=== PATIENT | female | born 1985 | race Caucasian/White ===

== ENCOUNTER 2017-07-28 17:54 | Inpatient (IN) ==
[2017-07-28] MEDS ORDERED: LACTATED RINGERS 1,000 ML IV ONE (18:31)
[2017-07-28] MEDS ORDERED: ONDANSETRON 4 MG/2 ML VIAL IV ONE ×2 (18:31→20:03)
--- NOTE | 2017-07-28 18:33 | Emergency Department Note ---
Abdominal Pain HPI - General Chief Complaint: Abdominal Pain Stated Complaint: left lower abdominal pain Time Seen by Provider: 07/28/17 18:23 Source: patient Mode of arrival: ambulatory Limitations: no limitations - History of Present Illness HPI Narrative: This patient has had abdominal pain for last several days and was seen here Friday and had a CAT scan consistent with either diverticulitis or colitis in the sigmoid colon. She was treated with IV antibiotics fluids on Friday and discharged on oral Flagyl and Cipro and is not getting any better. Pain is the same and she is unable to eat due to nausea. She does feel thirsty and dehydrated. - Related Data Previous Rx's Medication Instructions Recorded Ciprofloxacin [Cipro] 500 mg PO BID #20 tab 07/25/17 HYDROcodone/APAP 10/325MG [[place] 1 tab PO Q4H PRN #20 tab 07/25/17 10/325Mg] metroNIDAZOLE [Metronidazole] 500 mg PO Q8 #30 tab 07/25/17 Allergies Allergy/AdvReac Type Severity Reaction Status Date / Time No Known Drug Allergies Allergy Verified 07/25/17 15:01 Review of Systems All systems ED: reviewed and negative except as stated. Abdominal Pain PMH - Past Medical History [facility] Narrative: Medical History Anal fissure (Acute) Medical history: Reports: other (hernia) Reports: diverticulitis Psychiatric history: Reports: no psych history [employer] history: Reports: other (just had her period) Family history: Reports: no significant family history - Social History Smoking status: Never smoker Physical Exam Limitations: no limitations General appearance: alert Head: atraumatic Eye: Present: normal appearance ENT: normal exam Neck: Present: normal inspection Chest: Present: normal inspection Respiratory: Present: normal lung sounds bilaterally Cardiovascular: Present: regular rate, normal rhythm, normal heart sounds Abdominal: Present: soft, tenderness. Absent: distention, guarding, rebound, rigidity Abdominal tenderness: Present: LLQ Neurological: Present: alert Psychiatric: Present: normal affect, normal mood Skin: Present: warm, dry, intact Course Vital Signs Temperature 98.7 F 07/28/17 17:55 Pulse Rate 131 H 07/28/17 17:55 Respiratory Rate 22 07/28/17 17:55 Blood Pressure 151/97 07/28/17 17:55 Pulse Oximetry (%) 100 07/28/17 17:55 Temperature 98.7 F 07/28/17 17:55 Pulse Rate 131 H 07/28/17 17:55 Respiratory Rate 22 07/28/17 17:55 Blood Pressure 151/97 07/28/17 17:55 Pulse Oximetry (%) 100 07/28/17 17:55 Abdominal Pain - MDM Narrative Medical decision making narrative: Patient is hydrated lab work still shows a slightly elevated white count. I discussed the case with Dr. Nelson and the patient will be admitted to the hospital for inpatient treatment. - Lab Data Lab results reviewed: Yes I reviewed the patient's lab results. Result diagrams: 07/28/17 18:41 07/28/17 18:41 Lab Results 07/28/17 07/28/17 07/28/17 Range/Units 18:41 18:41 19:09 WBC 12.3 H (4.5-11.0) K/mcL RBC 5.08 (4.00-5.20) M/mcL Hgb 14.3 (12.0-15.0) g/dL Hct 43.1 (36.0-48.0) % MCV 84.8 (80.0-100.0) fL MCH 28.1 (26.0-34.0) pg MCHC 33.2 (31.0-36.0) g/dL RDW 14.8 H (11.5-14.5) % Plt Count 436 (140-440) K/mcL MPV 8.0 (7.4-10.4) fL Gran % 84.6 H (38.0-78.0) % Lymph % (Auto) 9.4 L (15.5-49.0) % Castro % (Auto) 3.0 (1.0-12.0) % Eos % (Auto) 2.7 (0.0-7.0) % Baso % (Auto) 0.3 (0.0-2.0) % Gran # 10.4 H (1.8-8.0) K/mcL Lymph # (Auto) 1.2 L (1.5-4.8) K/mcL Castro # (Auto) 0.4 (0.1-0.9) K/mcL Eos # (Auto) 0.3 (0.0-0.7) K/mcL Baso # (Auto) 0 (0.0-0.3) K/mcL Sodium 135 (133-145) mmol/L Potassium 4.4 (3.3-5.1) mmol/L Chloride 96 (96-108) mmol/L Carbon Dioxide 19 L (22-30) mmol/L Anion Gap 20.0 H (8-16) BUN 7 (6-20) mg/dl Creatinine 0.7 (0.6-1.1) mg/dl GFR Calculation 115 Glucose 96 (70-105) mg/dL Calcium 10.1 (8.6-10.4) mg/dl Total Bilirubin 0.2 (0.0-1.0) mg/dL AST 16 (0-37) U/l ALT 15 (0-40) U/l Alkaline Phosphatase 66 (39-117) U/L Total Protein 8.5 H (5.9-8.4) gm/dL Albumin 4.6 (3.2-5.2) gm/dL Globulin 3.9 H (2.2-3.7) gm/dL Albumin/Globulin Ratio 1.2 (1.0-2.3) Urine Color Straw Urine Appearance Clear Urine pH 6.0 (5.0-9.0) Ur Specific Conde 1.005 (1.000-1.035) Urine Protein Neg (NEG) mg/dL Urine Glucose (UA) Negative (NEG) mg/dL Urine Ketones 80 A (NEG) mg/dL Urine Occult Blood Neg (<0.03) mg/dL Urine Nitrate Neg (NEG) Urine Bilirubin Neg (NEG) mg/dL Urine Urobilinogen Neg (NEG) mg/dL Ur Leukocyte Esterase Neg (NEG) /uL Urine RBC < 1 (0-1) /hpf Urine WBC 0 (0-4) /hpf Ur Squamous Epith Cells 2 (0-4) /hpf Urine Bacteria 0 (0) /hpf Urine Mucus Few (0) /hpf Ur Culture Indicated? No Disposition Pt seen by BUSINESS INFORMATION CONSULTANT/PA only: No Clinical Impression: Diverticulitis Disposition: Xfer As Inpt ([facility]) Condition: Good Referrals: Mala Stone ARNP [Primary Care Provider] - Time of Disposition: 20:05
[2017-07-28] MEDS: HYDROmorphone 2 MG/ML VIAL IV PRN ×3 (18:54→20:04)
[2017-07-28 19:35] LABS: Appearance,Urine CLEAR; Bacteria,Urine 0 /hpf (0); Bilirubin,Urine NEG (NEG); Color,Urine STRAW; Glucose,Urine (UA) NEGATIVE (NEG); Leukocyte Esterase,Urine NEG /uL (NEG); Mucus,Urine FEW /hpf (0); Protein,Urine NEG (NEG); Specific Gravity,Urine 1.005 (1.000-1.035); Urine Blood NEG mg/dL (<0.03); Urine RBC < 1 /hpf (0-1); Urine Squamous Epithelial Cell 2 /hpf (0-4); Urine WBC 0 /hpf (0-4); Urobilinogen,Urine NEG (NEG)
[2017-07-28 19:36] LABS: Basophils # (Auto) 0 K/mcL (0.0-0.3); Basophils % (Auto) 0.3 % (0.0-2.0); Eosinophils # (Auto) 0.3 K/mcL (0.0-0.7); Eosinophils % (Auto) 2.7 % (0.0-7.0); Granulocytes % (Auto) 84.6 % (38.0-78.0); Lymphocytes # (Auto) 1.2 K/mcL (1.5-4.8); Lymphocytes % (Auto) 9.4 % (15.5-49.0); Mean Cell Volume 84.8 fL (80.0-100.0); Mean Corpuscular HGB Conc 33.2 g/dL (31.0-36.0); Mean Corpuscular Hemoglobin 28.1 pg (26.0-34.0); Monocytes # (Auto) 0.4 K/mcL (0.1-0.9); Platelet Count 436 K/mcL (140-440); RBC 5.08 M/mcL (4.00-5.20); Red Cell Distribution Width 14.8 % (11.5-14.5)
[2017-07-28 19:47] LABS: ALT/SGPT 15 U/l (0-40); Albumin 4.6 gm/dL (3.2-5.2); Albumin/Globulin Ratio 1.2 (1.0-2.3); Alkaline Phosphatase 66 U/L (39-117); Blood Urea Nitrogen 7 mg/dl (6-20)
[2017-07-28] MEDS ORDERED: metroNIDAZOLE 500 MG/100 ML BAG IV ONE (20:04)
[2017-07-28] MEDS ORDERED: LEVOFLOXACIN 750 MG/150 ML BAG IV ONE (20:04)
[2017-07-28] MEDS ORDERED: ONDANSETRON 4 MG/2 ML VIAL ONE (20:11)
[2017-07-28] MEDS ORDERED: ACETAMINOPHEN 325 MG TABLET PO PRN (21:19)
[2017-07-28] MEDS ORDERED: HYDROmorphone 2 MG/ML VIAL IV PRN (21:19)
[2017-07-28] MEDS: 0.9 % SODIUM CHLORIDE 1,000 ML IV SCH (22:13)
[2017-07-28] MEDS: 0.9 % SODIUM CHLORIDE 10 ML SYRINGE IV SCH (22:17)
[2017-07-28] MEDS: oxyCODONE HCL 5 MG TABLET PO PRN (22:21)
[2017-07-29] MEDS: ONDANSETRON 4 MG/2 ML VIAL IV PRN ×2 (01:25→10:49)
[2017-07-29] MEDS: oxyCODONE HCL 5 MG TABLET PO PRN ×2 (04:13→21:09)
[2017-07-29] MEDS: metroNIDAZOLE 500 MG/100 ML BAG IV SCH ×4 (05:31→23:10)
[2017-07-29] MEDS: 0.9 % SODIUM CHLORIDE 1,000 ML IV SCH ×2 (05:31→17:11)
[2017-07-29] MEDS: 0.9 % SODIUM CHLORIDE 10 ML SYRINGE IV SCH ×3 (05:40→21:04)
[2017-07-29 06:30] LABS: Mean Corpuscular HGB Conc 32.6 g/dL (31.0-36.0); Platelet Count 325 K/mcL (140-440); RBC 4.31 M/mcL (4.00-5.20); Red Cell Distribution Width 14.9 % (11.5-14.5)
[2017-07-29 06:52] LABS: ALT/SGPT 12 U/l (0-40); Albumin 3.9 gm/dL (3.2-5.2); Albumin/Globulin Ratio 1.3 (1.0-2.3); Alkaline Phosphatase 54 U/L (39-117); Bilirubin,Direct < 0.2 mg/dL (0.0-0.3); Blood Urea Nitrogen 5 mg/dl (6-20); Gamma Glutamyl Transpeptidase 12 U/L (5-36); Uric Acid 8.4 mg/dL (2.5-8.0)
[2017-07-29 07:30] LABS: Lymphocytes % 7 % (15-49); Monocytes % (Manual) 2 % (1-12); Platelet Estimate NORMAL (NORMAL); RBC Morphology NORMAL (NORMAL); Segmented Neutrophils % 91 % (38-78)
[2017-07-29] MEDS: LEVOFLOXACIN 500 MG/100 ML BAG IV SCH (09:17)
--- NOTE | 2017-07-29 12:39 | General Surg History&Physical ---
History of Present Illness Patient information: Note initiated : 07/29/17 at 12:37 pm Service Date, if different from initiated Date: [] Patient: Alan Cooper a 31 y/o F admitted on 07/28/17 for Left Lower Abdominal Pain/Diverticulitis. Chief Complaint: [] HPI: Ms. Cooper is a 31 year old F admitted with left lower quadrant. The patient had onset of left lower quadrant abdominal pain on of last week. She had pain all night and into the next day. The pain continued while she was at work and she finally was seen in the emergency room after she noticed that she was having some bleeding. She had a CT done which suggested diverticulitis involving the proximal sigmoid colon with localized pericolonic inflammation and thickening of the colonic wall. She was treated with Cipro and Flagyl and discharged home but she continued to be symptomatic and finally return to the emergency room on 28 July. Her white blood count was increased. She states that she has some fever and nausea. She is admitted with acute diverticulitis and will be treated accordingly. Past History Past medical history: No chronic medical illness Past surgical history: Umbilical hernia repair Past family history: Father age 63 with history of supraventricular tachycardia Mother age 57 with history of supraventricular tachycardia Brother age 37 healthy Past social history: Employed Former smoker Occasional alcohol use Denies drug use Medications and Allergies Home Medications Medication Instructions Recorded Confirmed Type Ciprofloxacin [Cipro] 500 mg PO BID #20 tab 07/25/17 07/28/17 Rx HYDROcodone/APAP 10/325MG [[place] 1 tab PO Q4H PRN #20 tab 07/25/17 07/28/17 Rx 10/325Mg] metroNIDAZOLE [Metronidazole] 500 mg PO Q8 #30 tab 07/25/17 07/28/17 Rx buPROPion [Wellbutrin] 0 mg PO DAILY 07/28/17 07/28/17 History Allergies Allergy/AdvReac Type Severity Reaction Status Date / Time No Known Drug Allergies Allergy Verified 07/25/17 15:01 Exam Temp Pulse Resp BP Pulse Ox 96.9 F L 86 16 102/68 99 07/29/17 07:31 07/29/17 07:48 07/29/17 07:48 07/29/17 07:31 07/29/17 07:48 - General physical appearance well developed, well nourished, no distress, obese - Eyes PERRL, normal ocular movement - ENT normal pinna, normal nares, normal mucosa, no hearing loss, no congestion - Head Head exam IM: Present: atraumatic, normocephalic - Neck no masses, no bruits, trachea midline, no lymphadectomy, no venous distension - Cardiovascular Cardiovascular exam IM: Present: normal rate and rhythm, RRR, +S1, +S2. Absent : gallop, JVD, systolic murmur - Respiratory normal expansion, normal respiratory effort, clear to percussion, clear to auscultation - Abdomen Abdomen: Present: soft, tender (Mild tenderness in left lower quadrant and left flank), bowel sounds, distended Hernia: Present: none, umbilical (Recurrent umbilical hernia) - Genitourinary Present: normal external genitalia - Integumentary Present: no rash, no growths, no abnormal pigmentation - Neurologic Present: normal coordination, normal sensation - Musculoskeletal Present: normal gait, normal posture - Psychiatric Present: oriented to time, oriented to person, oriented to place, speech is normal, memory intact Assessment and Plan (1) Diverticulitis Clear liquid diet Intravenous Levaquin and Flagyl Serial lab work Status: Acute (2) Recurrent umbilical hernia Status: Acute
[2017-07-29] MEDS: PANTOPRAZOLE 40 MG VIAL IV SCH (17:11)
[2017-07-29] MEDS: buPROPion 150 MG TAB.SR.12H PO SCH (21:04)
[2017-07-29] MEDS: TEMAZEPAM 15 MG CAPSULE PO PRN (23:10)
[2017-07-30] MEDS: 0.9 % SODIUM CHLORIDE 1,000 ML IV SCH ×2 (03:16→09:11)
[2017-07-30] MEDS: buPROPion 150 MG TAB.SR.12H PO SCH ×3 (04:58→12:50)
[2017-07-30] MEDS: metroNIDAZOLE 500 MG/100 ML BAG IV SCH ×4 (04:58→23:14)
[2017-07-30] MEDS: 0.9 % SODIUM CHLORIDE 10 ML SYRINGE IV SCH ×3 (04:59→23:14)
[2017-07-30 06:32] LABS: Mean Cell Volume 85.3 fL (80.0-100.0); Mean Corpuscular HGB Conc 33.3 g/dL (31.0-36.0); Mean Corpuscular Hemoglobin 28.4 pg (26.0-34.0); Platelet Count 300 K/mcL (140-440); Red Cell Distribution Width 15.1 % (11.5-14.5)
[2017-07-30 07:24] LABS: ALT/SGPT 13 U/l (0-40); Albumin 3.4 gm/dL (3.2-5.2); Albumin/Globulin Ratio 1.3 (1.0-2.3); Alkaline Phosphatase 79 U/L (39-117); Bilirubin,Direct < 0.2 mg/dL (0.0-0.3); Blood Urea Nitrogen 3 mg/dl (6-20); Gamma Glutamyl Transpeptidase 10 U/L (5-36); Uric Acid 6.7 mg/dL (2.5-8.0)
[2017-07-30 07:41] LABS: Eosinophils % (Manual) 2 % (0-7); Lymphocytes % 33 % (15-49); Monocytes % (Manual) 7 % (1-12); Platelet Estimate NORMAL (NORMAL); RBC Morphology NORMAL (NORMAL); Segmented Neutrophils % 58 % (38-78)
[2017-07-30] MEDS: PANTOPRAZOLE 40 MG VIAL IV SCH ×2 (07:49→17:18)
[2017-07-30] MEDS ORDERED: buPROPion 75 MG TABLET PO SCH (09:00)
[2017-07-30] MEDS: LEVOFLOXACIN 500 MG/100 ML BAG IV SCH (09:12)
--- NOTE | 2017-07-30 11:26 | General Surgery Progress Note ---
Subjective Patient reports: feels better, pain is less, tolerating liquids well, flatus, bowel movement, afebrile Narrative: Note initiated : 07/30/17 at 11:20 am Service Date, if different from initiated Date: [] Patient: Alan Cooper 31 y/o F admitted on 07/28/17 for Left Lower Abdominal Pain/Diverticulitis. Chief Complaint: [Patient is continuing to improve. She has less pain in her left lower quadrant and she has good active bowel sounds and is passing flatus. She does not have nausea or vomiting. She has tolerated clear liquids without difficulty. She is afebrile and her white blood count has returned to normal.] Objective Temp Pulse Resp BP Pulse Ox 96.3 F L 88 16 119/73 95 07/30/17 06:51 07/30/17 08:00 07/30/17 08:00 07/30/17 06:51 07/30/17 08:00 - Additional Data Intake & Output - Last 24 hours: Intake & Output 07/28/17 07/29/17 07/30/17 07/31/17 05:59 05:59 05:59 05:59 Intake Total 2568 / 2568 2930 / 2930 Output Total 1425 / 1425 2700 / 2700 600 / 600 Balance 1143 / 1143 230 / 230 -600 / -600 Weight 209 lb 209 lb 8 oz - General physical appearance well developed, well nourished, no distress - Eyes PERRL, normal ocular movement - ENT normal pinna, normal nares, normal mucosa, no hearing loss, no congestion - Neck no masses, no bruits, trachea midline, no lymphadectomy, no venous distension - Respiratory normal expansion, normal respiratory effort, clear to percussion, clear to auscultation - Cardiovascular Cardiovascular exam: Present: normal rate and rhythm, RRR, +S1, +S2. Absent: gallop, JVD, systolic murmur - Abdomen tender (Mild tenderness in left lower quadrant with good active bowel sounds), bowel sounds - Integumentary no rash, no growths, no abnormal pigmentation - Neurologic normal coordination, normal sensation - Musculoskeletal normal gait, normal posture - Psychiatric oriented to time, oriented to person, oriented to place, speech is normal, memory intact - Labs 07/30/17 05:16 07/30/17 05:16 Diabetes panel 07/30/17 Range/Units 05:16 Sodium 139 (133-145) mmol/L Potassium 3.7 (3.3-5.1) mmol/L Chloride 107 (96-108) mmol/L Carbon Dioxide 20 L (22-30) mmol/L BUN 3 L (6-20) mg/dl Creatinine 0.5 L (0.6-1.1) mg/dl Glucose 88 (70-105) mg/dL Calcium 8.4 L (8.6-10.4) mg/dl AST 16 (0-37) U/l ALT 13 (0-40) U/l Alkaline Phosphatase 79 (39-117) U/L Total Protein 6.1 (5.9-8.4) gm/dL Albumin 3.4 (3.2-5.2) gm/dL Triglycerides 39 (<150) mg/dl Calcium panel 07/30/17 Range/Units 05:16 Calcium 8.4 L (8.6-10.4) mg/dl Phosphorus 2.3 L (2.7-4.5) mg/dL Albumin 3.4 (3.2-5.2) gm/dL Pituitary panel 07/30/17 Range/Units 05:16 Sodium 139 (133-145) mmol/L Potassium 3.7 (3.3-5.1) mmol/L Chloride 107 (96-108) mmol/L Carbon Dioxide 20 L (22-30) mmol/L BUN 3 L (6-20) mg/dl Creatinine 0.5 L (0.6-1.1) mg/dl Glucose 88 (70-105) mg/dL Calcium 8.4 L (8.6-10.4) mg/dl Adrenal panel 07/30/17 Range/Units 05:16 Sodium 139 (133-145) mmol/L Potassium 3.7 (3.3-5.1) mmol/L Chloride 107 (96-108) mmol/L Carbon Dioxide 20 L (22-30) mmol/L BUN 3 L (6-20) mg/dl Creatinine 0.5 L (0.6-1.1) mg/dl Glucose 88 (70-105) mg/dL Calcium 8.4 L (8.6-10.4) mg/dl Total Bilirubin < 0.2 (0.0-1.0) mg/dL AST 16 (0-37) U/l ALT 13 (0-40) U/l Alkaline Phosphatase 79 (39-117) U/L Total Protein 6.1 (5.9-8.4) gm/dL Albumin 3.4 (3.2-5.2) gm/dL Assessment and Plan (1) Diverticulitis Status: Acute Assessment and plan: We will continue present intravenous antibiotics Full liquid diet Saline lock IV Possible discharge tomorrow Current Visit: Yes (2) Recurrent umbilical hernia Status: Acute Current Visit: Yes - Time Spent With Patient Total time spent is greater than 50% in coordination of care (as documented) at patient's floor/unit and/or counseling patient:
[2017-07-30] MEDS: ONDANSETRON 4 MG/2 ML VIAL IV PRN (17:18)
[2017-07-30] MEDS: TEMAZEPAM 15 MG CAPSULE PO PRN (23:14)
[2017-07-31] MEDS: buPROPion 150 MG TAB.SR.12H PO SCH ×2 (05:41→11:54)
[2017-07-31] MEDS: metroNIDAZOLE 500 MG/100 ML BAG IV SCH ×2 (05:41→11:54)
[2017-07-31] MEDS: 0.9 % SODIUM CHLORIDE 10 ML SYRINGE IV SCH (05:41)
[2017-07-31 06:29] LABS: Basophils # (Auto) 0 K/mcL (0.0-0.3); Basophils % (Auto) 0.5 % (0.0-2.0); Eosinophils # (Auto) 0.4 K/mcL (0.0-0.7); Eosinophils % (Auto) 5.1 % (0.0-7.0); Granulocytes % (Auto) 65.9 % (38.0-78.0); Lymphocytes # (Auto) 1.8 K/mcL (1.5-4.8); Lymphocytes % (Auto) 21.6 % (15.5-49.0); Mean Cell Volume 85.1 fL (80.0-100.0); Mean Corpuscular HGB Conc 33.2 g/dL (31.0-36.0); Mean Corpuscular Hemoglobin 28.2 pg (26.0-34.0); Monocytes # (Auto) 0.6 K/mcL (0.1-0.9); Monocytes % (Auto) 6.9 % (1.0-12.0); Platelet Count 288 K/mcL (140-440); RBC 4.04 M/mcL (4.00-5.20); Red Cell Distribution Width 15.3 % (11.5-14.5)
[2017-07-31] MEDS: PANTOPRAZOLE 40 MG VIAL IV SCH (06:55)
[2017-07-31 07:39] LABS: ALT/SGPT 13 U/l (0-40); Albumin 3.6 gm/dL (3.2-5.2); Albumin/Globulin Ratio 1.5 (1.0-2.3); Alkaline Phosphatase 45 U/L (39-117); Bilirubin,Direct < 0.2 mg/dL (0.0-0.3); Blood Urea Nitrogen 2 mg/dl (6-20); Gamma Glutamyl Transpeptidase 11 U/L (5-36); Uric Acid 5.6 mg/dL (2.5-8.0)
[2017-07-31] MEDS: LEVOFLOXACIN 500 MG/100 ML BAG IV SCH (08:50)
--- NOTE | 2017-07-31 13:03 | Discharge Summary ---
Providers - Providers Patient information: Note initiated : 07/31/17 at 1:00 pm Service Date, if different from initiated Date: [] Patient: Alan Cooper 31 y/o F admitted on 07/28/17 for Left Lower Abdominal Pain/Diverticulitis. Chief Complaint: [] Date of admission: 07/28/17 Discharge date: 07/31/17 Attending physician: Sharri Nelson Hospitalization Hospital course: 31-year-old female who was admitted with acute diverticulitis that failed outpatient treatment. She was seen the week before admission in the emergency room with findings of acute diverticulitis. She was treated with oral antibiotics. She developed nausea and vomiting and could not keep her medications down. Her pain became increasingly worse and she finally came to the emergency room where it was noted that she had leukocytosis and exquisitely tender abdomen. She was admitted and treated with IV Levaquin and metronidazole. She has responded over the past 3 days. She has some minimal discomfort at this time and is tolerating diet without difficulty. She has taken oral medications without difficulty. Her white blood count is now 8.4. She is stable for discharge. Discharge diagnosis: Acute diverticulitis Reason for admission: Recurrent abdominal pain Procedures: None Pertinent studies/significant findings: None Complications: None Exam Temp Pulse Resp BP Pulse Ox 98.7 F 76 14 108/75 97 07/31/17 07:19 07/31/17 07:19 07/31/17 07:19 07/31/17 07:19 07/31/17 07:19 - General physical appearance well developed, well nourished, no distress - Eyes PERRL, normal ocular movement - ENT normal pinna, normal nares, normal mucosa, no hearing loss, no congestion - Head Head exam IM: Present: atraumatic, normocephalic - Neck no masses, no bruits, trachea midline, no lymphadectomy, no venous distension - Cardiovascular Cardiovascular exam IM: Present: normal rate and rhythm - Respiratory normal expansion, normal respiratory effort, clear to percussion, clear to auscultation - Abdomen Abdomen: Present: soft, tender (Mild tenderness and left lower quadrant; good active bowel sounds; no distention), bowel sounds Hernia: Present: none - Genitourinary Present: normal external genitalia - Integumentary Present: no rash, no growths, no abnormal pigmentation - Neurologic Present: normal coordination, normal sensation - Musculoskeletal Present: normal gait, normal posture - Psychiatric Present: oriented to time, oriented to person, oriented to place, speech is normal, memory intact Discharge Plan - Patient/Caregiver Discharge Instructions Activity: increase activity as tolerated Diet: Regular Diet (Mechanical soft diet for the next week) Additional Instructions: Patient has antibiotics at home and she is advised to complete taking until they are gone Follow-up in the office in 2 weeks Will need follow-up CT after seen in the office Prescriptions: HYDROcodone/APAP 10/325MG [[place] 10/325Mg] 1 tab PO Q4H PRN #30 tab PRN Reason: Pain Promethazine [Phenergan] 25 mg PO Q4HP PRN #30 tab PRN Reason: Nausea And Vomiting - Follow up Plan Follow up with: Mala Stone ARNP [Primary Care Provider] - 08/26/17 2:00 pm Disposition: Home, Self-Care Prognosis: Good Rehab Potential: Good I certify that the patient requires SNF services.: No Overall status at discharge: patient is not back to baseline Pending Studies Resuscitation Status Full Code Diet Full Liquid Diet Start FriJul 30 1138 Bupropion HCl (Wellbutrin Sr) 150 mg PO BID@0600,1200 COUNT INCLUDES THE [facility] Last Admin: 07/31/17 11:54 Dose: 150 mg Admin: 07/31/17 05:41 Dose: 150 mg Admin: 07/30/17 12:50 Dose: 150 mg Hydromorphone HCl (Dilaudid) 1 mg IV Q2HP PRN PRN Reason: PAIN LEVEL > 6 Last Admin: 07/29/17 03:25 Dose: 1 mg Levofloxacin (Levaquin) 500 mg in 100 mls @ 100 mls/hr IV Q24H COUNT INCLUDES THE [facility] Last Infusion: 07/31/17 09:50 Dose: 0 mls/hr Admin: 07/31/17 08:50 Dose: 100 mls/hr Infusion: 07/30/17 10:12 Dose: 0 mls/hr Admin: 07/30/17 09:12 Dose: 100 mls/hr Infusion: 07/29/17 10:17 Dose: 0 mls/hr Admin: 07/29/17 09:17 Dose: 100 mls/hr Metronidazole (Flagyl) 500 mg in 100 mls @ 100 mls/hr IV Q6H COUNT INCLUDES THE [facility] Last Admin: 07/31/17 11:54 Dose: 100 mls/hr Infusion: 07/31/17 06:51 Dose: 0 mls/hr Admin: 07/31/17 05:41 Dose: 100 mls/hr Infusion: 07/31/17 00:14 Dose: 100 mls/hr Admin: 07/30/17 23:14 Dose: 100 mls/hr Infusion: 07/30/17 18:18 Dose: 0 mls/hr Admin: 07/30/17 17:18 Dose: 100 mls/hr Infusion: 07/30/17 13:50 Dose: 0 mls/hr Admin: 07/30/17 12:50 Dose: 100 mls/hr Infusion: 07/30/17 05:58 Dose: 100 mls/hr Admin: 07/30/17 04:58 Dose: 100 mls/hr Infusion: 07/30/17 00:10 Dose: 100 mls/hr Admin: 07/29/17 23:10 Dose: 100 mls/hr Infusion: 07/29/17 18:12 Dose: 100 mls/hr Admin: 07/29/17 17:12 Dose: 100 mls/hr Infusion: 07/29/17 13:32 Dose: 0 mls/hr Admin: 07/29/17 12:32 Dose: 100 mls/hr Infusion: 07/29/17 06:31 Dose: 0 mls/hr Admin: 07/29/17 05:31 Dose: 100 mls/hr Ondansetron HCl (Zofran) 4 mg IV Q6HP PRN PRN Reason: Nausea And Vomiting Last Admin: 07/30/17 17:18 Dose: 4 mg Admin: 07/29/17 10:49 Dose: 4 mg Admin: 07/29/17 01:25 Dose: 4 mg Oxycodone HCl (Roxicodone) 10 mg PO Q4HP PRN PRN Reason: PAIN LEVEL 3-6 Last Admin: 07/29/17 21:09 Dose: 10 mg Admin: 07/29/17 04:13 Dose: 10 mg Admin: 07/28/17 22:21 Dose: 10 mg Pantoprazole Sodium (Protonix) 40 mg IV BIDAC COUNT INCLUDES THE [facility] Last Admin: 07/31/17 06:55 Dose: 40 mg Admin: 07/30/17 17:18 Dose: 40 mg Admin: 07/30/17 07:49 Dose: 40 mg Admin: 07/29/17 17:11 Dose: 40 mg Sodium Chloride (Saline Flush) 10 ml IV Q8 MICHELLE Last Admin: 07/31/17 05:41 Dose: 10 ml Admin: 07/30/17 23:14 Dose: 10 ml Admin: 07/30/17 13:41 Dose: Not Given Admin: 07/30/17 04:59 Dose: Not Given Admin: 07/29/17 21:04 Dose: Not Given Admin: 07/29/17 14:00 Dose: Not Given Admin: 07/29/17 05:40 Dose: Not Given Admin: 07/28/17 22:17 Dose: Not Given Temazepam (Restoril) 30 mg PO HSP PRN PRN Reason: Insomnia Last Admin: 07/30/17 23:14 Dose: 30 mg Admin: 07/29/17 23:10 Dose: 30 mg Shift Summary 07/31/17 04:51 Shift Summary by Elmer Medina Pt has again rested well since PRN sleeping med given @ 2315. She has had min ABD pain 2/10 most of the noc - some nausea, yet declined the need for PRN Zofran. She is up AMB in RM (I) - voiding QS per hat. Saline lock to RT A/C - flushed & patent. VS - WNL on R.A.. She is calm, pleasant, & cooperative. Initialized on 07/31/17 04:51 - END OF NOTE
== END 2017-07-31 14:15 | disposition home or self-care (01) | DRG 392 ==
LOC: ED 17:54 → MEDSUR 21:09
PROVIDERS: ADMIT Family Medicine Adult Medicine; ATTEND Family Medicine Adult Medicine